=== PATIENT | female | born 1955 | race Caucasian/White ===

== ENCOUNTER → 2017-06-28 | Outpatient (CLI) | payer MEDICARE, MEDICAID ==
[~2017-06-28] MED LIST: AMOXICILLIN500 MG PO; ARTHRITIS PAIN650 MG; CLARITIN10 MG PO; COMBIVENT1 ARO IH; FLEXERIL10 MG PO; FLEXERIL5 MG PO; IBU-200200 MG PO; LEVAQUIN750 M1 PO; LISINOPRIL2.5 MG PO; MOTRIN800 MG PO; PREDNISONE10 MG PO; PREDNISONE20 M1 PO; PREDNISONE20 MG PO; ROBAXIN500 MG PO; ZITHROMAX Z PA250 MG PO; ZYRTEC10 MG PO
[2017-06-28 12:30] LABS: BASO # 0.1 10*3/uL (0.0-0.1); BASO % 0.7 % (0.0-1.0); EOS # 0.2 10*3/uL (0.0-0.4); EOS % 2.1 % (1.0-4.0); HEMATOCRIT 41.5 % (37.0-47.0); HEMOGLOBIN 14.2 g/dl (12.0-16.0); LYMPH # 2.6 10*3/uL (1.3-4.4); MEAN CELL VOLUME 92.2 fl (81.0-99.0); MEAN CORPUSCULAR HGB 31.6 pg (27.0-31.0); MEAN CORPUSCULAR HGB CONC 34.2 g/dl (33.0-37.0); MEAN PLATELET VOLUME 9.2 fl (9.6-12.3); MONO # 0.6 10*3/uL (0.1-1.0); MONO % 6.7 % (3.0-9.0); NEUT # 4.8 10*3/uL (2.3-7.9); NEUT % 57.8 % (47.0-73.0); PLATELET COUNT AUTOMATED 265 10*3/uL (130-400); RED CELL DISTRI WIDTH 13.2 % (0-14.5); WHITE BLOOD COUNT 8.3 10*3/uL (4.8-10.8)
[2017-06-28 13:10] LABS: ALBUMIN 3.5 gm/dl (3.1-4.5); ALKALINE PHOSPHATASE 92 U/L (45-117); BUN 13 mg/dl (7-24); CHLORIDE 106 mmol/L (98-107); CREATININE 0.85 mg/dL (0.55-1.02); POTASSIUM 4.2 mmol/L (3.5-5.1); SGOT/AST 74 IU/L (3-35); SGPT/ALT 83 U/L (12-78); SODIUM 140 mmol/L (136-145); TOTAL PROTEIN 7.2 gm/dL (6.4-8.2)
[2017-06-29 08:11] LABS: RHEUMATOID ARTHRITIS FACTOR 11.8 IU/mL (0.0-13.9)
== END | disposition home or self-care (01) ==
LOC: LAB 11:47
PROVIDERS: Internal Medicine
DX: I10 Essential (primary) hypertension (principal); L40.9 Psoriasis, unspecified; E55.9 Vitamin D deficiency, unspecified; M35.3 Polymyalgia rheumatica

== ENCOUNTER 2017-08-15 11:34 | Inpatient (IN) | payer MEDICARE, MEDICAID ==
[~2017-08-15] VITALS: Ht 170.2 cm; Wt 97.7 kg
[2017-08-15 11:42] VITALS: BP 134/88
[2017-08-15 12:35] LABS: BASO % 0.3 % (0.0-1.0); EOS # 0.1 10*3/uL (0.0-0.4); EOS % 0.6 % (1.0-4.0); HEMATOCRIT 43.6 % (37.0-47.0); LYMPH # 2.2 10*3/uL (1.3-4.4); LYMPH % 18.7 % (27.0-41.0); MEAN CELL VOLUME 90.1 fl (81.0-99.0); MEAN CORPUSCULAR HGB CONC 34.4 g/dl (33.0-37.0); MEAN PLATELET VOLUME 8.9 fl (9.6-12.3); MONO # 0.6 10*3/uL (0.1-1.0); MONO % 5.5 % (3.0-9.0); NEUT # 8.6 10*3/uL (2.3-7.9); NEUT % 74.5 % (47.0-73.0); PLATELET COUNT AUTOMATED 269 10*3/uL (130-400); RED BLOOD COUNT 4.84 10*6/uL (4.10-5.10); RED CELL DISTRI WIDTH 13.1 % (0-14.5); WHITE BLOOD COUNT 11.5 10*3/uL (4.8-10.8)
[2017-08-15 12:44] LABS: ACT PARTIAL THROMBO TIME 23.6 SECONDS (20.8-31.5)
[2017-08-15 12:54] LABS: ALBUMIN 3.5 gm/dl (3.1-4.5); ALKALINE PHOSPHATASE 95 U/L (45-117); BUN 13 mg/dl (7-24); CHLORIDE 103 mmol/L (98-107); CREATININE 0.89 mg/dL (0.55-1.02); LIPASE 112 U/L (73-393); SGOT/AST 32 IU/L (3-35); SGPT/ALT 53 U/L (12-78); SODIUM 139 mmol/L (136-145); TOTAL PROTEIN 7.7 gm/dL (6.4-8.2)
[2017-08-15 12:55] LABS: TROPONIN I < 0.015 ng/ml (<0.045)
[2017-08-15 13:49] LABS: BILIRUBIN NEGATIVE (NEGATIVE); BLOOD 1+ (NEGATIVE); CLARITY CLEAR (CLEAR); COLOR YELLOW (YELLOW); GLUCOSE NEGATIVE (NEGATIVE); KETONE NEGATIVE (NEGATIVE); LEUKO ESTERASE NEGATIVE (NEGATIVE); NITRITE NEGATIVE (NEGATIVE); SPECIFIC GRAVITY <= 1.005 (1.005-1.030)
[2017-08-15 14:04] LABS: BACTERIA TRACE
--- NOTE | 2017-08-15 14:09 | NUR ---
RESTING IN NO DISTRESS. NAUSEA "NOT BAD" LUCILA DAVALOS RN
[2017-08-15 15:21] VITALS: BP 118/60
[2017-08-15 15:30] VITALS: BP 154/58
--- NOTE | 2017-08-15 15:50 | NUR ---
A 61, admitted to , under the services of RIANNA Hayden DO with a diagnosis of ACUTE GASTRITIS. Chief complaint is NAUSEA/VOMITING. Patient arrived via ambulatory from ER. Monitor applied. Initial assessment completed. Vital signs taken and recorded. RIANNA HAYDEN DO notified of admission to the unit. Orders received. See assessment for past medical history, medications and allergies. Patient and/or family oriented to unit. [facility] reviewed. Clothing/patient valuable form completed. YI PASTOR
[2017-08-15 16:00] VITALS: BP 154/58
--- NOTE | 2017-08-15 16:17 | NUR ---
DR ZENG CALLED FOR CONSULT.
--- NOTE | 2017-08-15 16:46 | NUR ---
PT REFUSING FLU AND PNEUMONIA VACCINES THIS ADMISSION, STATES SHE HAD A BAD REACTION TO FLU VACC IN THE PAST.
--- NOTE | 2017-08-15 17:23 | NUR ---
PT C/O H/A, REQUESTED AND ADMINISTERED TYLENOL 650MG PO PRN PER ORDERS, WILL MONITOR EFFECTS, CALL LIGHT WITH IN REACH
--- NOTE | 2017-08-15 18:21 | NUR ---
PRN PAIN MED EFFECTIVE, PT REPORTS HEADACHE 4/10.
[2017-08-15 20:00] VITALS: BP 122/50
[2017-08-16] VITALS: BP 90/58
--- NOTE | 2017-08-16 05:40 | NUR ---
PATIENT MEDICATED WITH TYLENOL PER PRN ORDER FOR C/O HEADACHE. RATED PAIN A 6/10 WITH 10 BEING THE WORST. SEE EMAR. REINFORCED USE OF CALL LIGHT.
[2017-08-16 06:12] LABS: BASO % 0.5 % (0.0-1.0); EOS # 0.2 10*3/uL (0.0-0.4); EOS % 2.2 % (1.0-4.0); HEMATOCRIT 41.1 % (37.0-47.0); HEMOGLOBIN 14.3 g/dl (12.0-16.0); LYMPH # 2.5 10*3/uL (1.3-4.4); LYMPH % 29.3 % (27.0-41.0); MEAN CELL VOLUME 91.5 fl (81.0-99.0); MEAN CORPUSCULAR HGB 31.8 pg (27.0-31.0); MEAN CORPUSCULAR HGB CONC 34.8 g/dl (33.0-37.0); MONO # 0.5 10*3/uL (0.1-1.0); MONO % 6.1 % (3.0-9.0); NEUT # 5.2 10*3/uL (2.3-7.9); NEUT % 61.4 % (47.0-73.0); PLATELET COUNT AUTOMATED 279 10*3/uL (130-400); RED BLOOD COUNT 4.49 10*6/uL (4.10-5.10); RED CELL DISTRI WIDTH 13.4 % (0-14.5); WHITE BLOOD COUNT 8.5 10*3/uL (4.8-10.8)
--- NOTE | 2017-08-16 06:30 | NUR ---
PATIENT STATED PAIN MED HELPED A LITTLE WITH HEADACHE.
[2017-08-16 06:44] LABS: BUN 11 mg/dl (7-24); CHLORIDE 108 mmol/L (98-107); CHOLESTEROL 100 mg/dL (<200); CREATININE 0.81 mg/dL (0.55-1.02); HDL CHOLESTEROL 65 mg/dl (40-60); LDL CHOLESTEROL 22 mg/dL (9-159); PHOSPHOROUS 3.3 mg/dL (2.5-4.9); SODIUM 142 mmol/L (136-145); TRIGLYCERIDES 63 mg/dl (<150); VLDL CHOLESTEROL 13 mg/dL (6-40)
[2017-08-16 07:34] LABS: VITAMIN D, 25-HYDROXY 18.4 ng/mL (30-100)
[2017-08-16 08:00] VITALS: BP 111/53
[2017-08-16 12:00] VITALS: BP 142/61
[2017-08-16 16:00] VITALS: BP 93/39
[2017-08-16 18:48] VITALS: BP 104/46
--- NOTE | 2017-08-16 18:49 | NUR ---
NOTIFIED OF HYPOTENSION, PT IS ASYMPTOMATIC, SITTING IN CHAIR WATCHING TV,
--- NOTE | 2017-08-16 19:50 | NUR ---
PT. AWAKE, ALERT AND ORIENTED X 3 AT THIS TIME. PT. IN BED AT THIS TIME. LUNGS DIMINISHED T/O, DENIES SOB, NO COUGH PER PT. HRR, PPP, NO EDEMA, DENIES CP. BS NORMO X 4 QUADS, PT. DENIES NVD AT THIS TIME. SKIN W/D/I. IV IN RT. AC ASYMPTOMATIC. CALL LIGHT WITHIN REACH, BED IN LOWEST POSITION, WHEELS LOCKED.
[2017-08-16 20:00] VITALS: BP 122/50
[2017-08-17] VITALS: BP 101/50
[2017-08-17 06:44] LABS: BASO % 0.3 % (0.0-1.0); EOS # 0.3 10*3/uL (0.0-0.4); HEMATOCRIT 41.2 % (37.0-47.0); HEMOGLOBIN 13.9 g/dl (12.0-16.0); LYMPH # 2.7 10*3/uL (1.3-4.4); MEAN CELL VOLUME 91.4 fl (81.0-99.0); MEAN CORPUSCULAR HGB 30.8 pg (27.0-31.0); MEAN CORPUSCULAR HGB CONC 33.7 g/dl (33.0-37.0); MEAN PLATELET VOLUME 9.4 fl (9.6-12.3); MONO # 0.6 10*3/uL (0.1-1.0); MONO % 6.5 % (3.0-9.0); NEUT % 58.7 % (47.0-73.0); PLATELET COUNT AUTOMATED 289 10*3/uL (130-400); RED BLOOD COUNT 4.51 10*6/uL (4.10-5.10); RED CELL DISTRI WIDTH 13.3 % (0-14.5); WHITE BLOOD COUNT 8.6 10*3/uL (4.8-10.8)
[2017-08-17 07:23] VITALS: BP 128/61
--- NOTE | 2017-08-17 07:30 | NUR ---
PATIENT IS RESTING IN THE BEDSIDE CHAIR. PATIENT DENIES ANY PAIN OR DISCOMFORT AT THIS TIME. PATIENT IS A&OX3 AND AMBULATORY W/STEADY GAIT. PATIENT WAS PLEASANT AND COOPERATIVE UPON ASSESSMENT. CALL LIGHT WITHIN REACH. SEE ASSESSMENT.
--- NOTE | 2017-08-17 07:35 | NUR ---
PATIENT OFF THE FLOOR VIA BED FOR SCHEDULED EDG.
[2017-08-17 09:34] VITALS: BP 124/58
[2017-08-17 09:49] VITALS: BP 130/82
[2017-08-17 10:04] VITALS: BP 131/63
[2017-08-17 12:26] VITALS: BP 133/66
--- NOTE | 2017-08-17 14:25 | NUR ---
PATIENT IS SITTING UP IN THE BEDSIDE CHAIR. SCD ARE APPLIED AND FUNCTIONING. PATIENT DENIES ANY PAIN OR DISCOMFORT AT THIS TIME. PATIENT IS ON A REGULAR DIET AND TOLERATING FOOD WELL. PATIENT DENIES ANY N/V/D OR SOB UPON ASSESSMENT. PATIENT IS AMBULATORY AND A&OX3. CALL LIGHT IS WITHIN REACH. SEE ASSESSMENT.
[2017-08-17] MEDS ORDERED: PROTONIX40 MG PO (15:06)
[2017-08-17] MEDS ORDERED: Carafate1 GM PO ×2 (15:06→15:43)
--- NOTE | 2017-08-17 15:45 | NUR ---
Discharge instructions reviewed with patient/family. Patient receptive and verbalizes understanding. Follow-up care arranged WITH PCP IN ONE WEEK. Written instructions given to patient. PATIENT ESCORTED OFF OF FLOOR VIA WHEELCHAIR. ODALIS VERMA
== END 2017-08-17 15:45 | disposition home or self-care (01) | DRG 384 ==
LOC: ED 11:34 → 5E 14:53 → EDHOLD 14:53 → 5E 14:57
PROVIDERS: Emergency Medicine; Student in an Organized Health Care Education/Training Program; ADMIT Internal Medicine
PROC: 0DB68ZX Excision of Stomach, Via Natural or Artificial Opening Endoscopic, Diagnostic (ICD-10-PCS; principal; 2017-08-17)
DX: K25.9 Gastric ulcer, unspecified as acute or chronic, without hemorrhage or perforation (principal); E66.9 Obesity, unspecified; K29.70 Gastritis, unspecified, without bleeding; K26.9 Duodenal ulcer, unspecified as acute or chronic, without hemorrhage or perforation; I10 Essential (primary) hypertension; Z71.6 Tobacco abuse counseling; Z72.0 Tobacco use; Z88.1 Allergy status to other antibiotic agents; Z79.2 Long term (current) use of antibiotics; Z79.899 Other long term (current) drug therapy; Z87.01 Personal history of pneumonia (recurrent); Z90.49 Acquired absence of other specified parts of digestive tract; Z98.51 Tubal ligation status; Z80.8 Family history of malignant neoplasm of other organs or systems; Z81.8 Family history of other mental and behavioral disorders; Z68.33 Body mass index [BMI] 33.0-33.9, adult

== ENCOUNTER → 2018-02-20 | Outpatient (CLI) | payer MEDICARE, MEDICAID ==
[~2018-02-20] MED LIST changes: +Carafate1 GM PO; +PROTONIX40 MG PO
== END | disposition home or self-care (01) ==
LOC: RAD 11:49
DX: M51.37 Other intervertebral disc degeneration, lumbosacral region (principal); M79.604 Pain in right leg

== ENCOUNTER 2018-11-07 12:47 | Emergency (ER) | payer MEDICARE, MEDICAID ==
[~2018-11-07] VITALS: Ht 175.2 cm; Wt 95.3 kg
--- NOTE | ~2018-11-07 | EKG ---
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
--- NOTE | ~2018-11-07 | EKG ---
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
[2018-11-07 13:12] LABS: BASO % 0.4 % (0.0-1.0); EOS # 0.1 10*3/uL (0.0-0.4); EOS % 1.4 % (1.0-4.0); HEMATOCRIT 46.1 % (37.0-47.0); HEMOGLOBIN 15.2 g/dl (12.0-16.0); LYMPH # 2.5 10*3/uL (1.3-4.4); LYMPH % 29.8 % (27.0-41.0); MEAN CELL VOLUME 92.4 fl (81.0-99.0); MEAN CORPUSCULAR HGB 30.5 pg (27.0-31.0); MEAN PLATELET VOLUME 9.2 fl (9.6-12.3); MONO # 0.6 10*3/uL (0.1-1.0); MONO % 6.6 % (3.0-9.0); NEUT # 5.2 10*3/uL (2.3-7.9); NEUT % 61.4 % (47.0-73.0); PLATELET COUNT AUTOMATED 271 10*3/uL (130-400); RED BLOOD COUNT 4.99 10*6/uL (4.10-5.10); WHITE BLOOD COUNT 8.4 10*3/uL (4.8-10.8)
[2018-11-07 13:22] LABS: ACT PARTIAL THROMBO TIME 24.9 SECONDS (20.8-31.5)
[2018-11-07 13:32] LABS: ALBUMIN 3.6 gm/dl (3.1-4.5); ALKALINE PHOSPHATASE 105 U/L (45-117); BUN 13 mg/dl (7-24); CHLORIDE 105 mmol/L (98-107); CREATININE 0.85 mg/dL (0.55-1.02); POTASSIUM 4.1 mmol/L (3.5-5.1); SGOT/AST 62 IU/L (3-35); SGPT/ALT 68 U/L (12-78); SODIUM 138 mmol/L (136-145); TOTAL PROTEIN 7.8 gm/dL (6.4-8.2)
[2018-11-07 13:36] LABS: TROPONIN I < 0.015 ng/ml (<0.045)
[2018-11-07 15:27] VITALS: BP 99/58
== END 2018-11-07 16:30 | disposition home or self-care (01) ==
LOC: ED 12:47
PROVIDERS: Emergency Medicine
DX: R07.89 Other chest pain (principal); I10 Essential (primary) hypertension; E66.9 Obesity, unspecified; Z87.891 Personal history of nicotine dependence; Z90.49 Acquired absence of other specified parts of digestive tract; Z98.51 Tubal ligation status; Z68.39 Body mass index [BMI] 39.0-39.9, adult; Z88.1 Allergy status to other antibiotic agents; Z79.899 Other long term (current) drug therapy; Z87.01 Personal history of pneumonia (recurrent)

== ENCOUNTER 2022-10-23 10:44 | Inpatient (IN) | payer MEDICARE ==
[~2022-10-23] VITALS: Ht 170.2 cm; Wt 103.4 kg
[2022-10-23 10:51] VITALS: BP 153/50
[2022-10-23 11:33] LABS: BILIRUBIN Negative (Negative); BLOOD Negative (Negative); CLARITY Clear (Clear); COLOR Yellow (Yellow); GLUCOSE Negative (Negative); KETONE Negative (Negative); LEUKO ESTERASE Negative (Negative); NITRITE Negative (Negative); PH 5.5 (4.5-8.0); SPECIFIC GRAVITY 1.015 (1.001-1.030); UROBILINOGEN 0.2 E.U./dl (0.0-1.0)
[2022-10-23 11:41] LABS: BACTERIA 1+
[2022-10-23 12:02] LABS: BASO % 0.4 % (0.0-1.0); EOS # 0.1 10*3/uL (0.0-0.4); EOS % 1.7 % (1.0-4.0); HEMATOCRIT 41.9 % (37.0-47.0); LYMPH # 1.4 10*3/uL (1.3-4.4); MEAN CELL VOLUME 90.1 fl (81.0-99.0); MEAN CORPUSCULAR HGB 29.5 pg (27.0-31.0); MEAN CORPUSCULAR HGB CONC 32.7 g/dl (33.0-37.0); MEAN PLATELET VOLUME 9.2 fl (9.6-12.3); MONO # 0.4 10*3/uL (0.1-1.0); MONO % 5.8 % (3.0-9.0); NEUT # 4.9 10*3/uL (2.3-7.9); NEUT % 71.4 % (47.0-73.0); PLATELET COUNT AUTOMATED 248 10*3/uL (130-400); RED BLOOD COUNT 4.65 10*6/uL (4.10-5.10); RED CELL DISTRI WIDTH 13.4 % (0-14.5); WHITE BLOOD COUNT 6.9 10*3/uL (4.8-10.8)
[2022-10-23 12:14] LABS: ACT PARTIAL THROMBO TIME 28.3 SECONDS (20.0-32.1)
[2022-10-23 12:29] LABS: ALKALINE PHOSPHATASE 80 U/L (46-116); BUN 15 mg/dl (9-23); CHLORIDE 100 mmol/L (98-107); LIPASE 33 U/L (12-53); POTASSIUM 4.1 mmol/L (3.4-5.1); SGPT/ALT 30 U/L (10-49); TOTAL PROTEIN 7.3 gm/dL (6.0-8.0)
[2022-10-23 17:00] VITALS: BP 131/47
[2022-10-23] MEDS ORDERED: LISINOPRIL10 M1 PO (17:10)
[2022-10-23] MEDS ORDERED: HYDROCHLOROTH12.5 M2 PO (17:10)
[2022-10-23 18:00] VITALS: BP 110/42
[2022-10-23 20:00] VITALS: BP 135/60
[2022-10-24] VITALS: BP 111/50
[2022-10-24 06:52] LABS: BASO % 0.1 % (0.0-1.0); HEMATOCRIT 42.3 % (37.0-47.0); LYMPH # 0.8 10*3/uL (1.3-4.4); LYMPH % 9.6 % (27.0-41.0); MEAN CELL VOLUME 87.8 fl (81.0-99.0); MEAN CORPUSCULAR HGB 29.7 pg (27.0-31.0); MEAN CORPUSCULAR HGB CONC 33.8 g/dl (33.0-37.0); MEAN PLATELET VOLUME 9.5 fl (9.6-12.3); MONO # 0.1 10*3/uL (0.1-1.0); MONO % 1.2 % (3.0-9.0); NEUT # 6.9 10*3/uL (2.3-7.9); NEUT % 87.6 % (47.0-73.0); PLATELET COUNT AUTOMATED 272 10*3/uL (130-400); RED BLOOD COUNT 4.82 10*6/uL (4.10-5.10); RED CELL DISTRI WIDTH 13.1 % (0-14.5); WHITE BLOOD COUNT 7.8 10*3/uL (4.8-10.8)
[2022-10-24 07:59] LABS: ALKALINE PHOSPHATASE 81 U/L (46-116); BUN 18 mg/dl (9-23); CHLORIDE 102 mmol/L (98-107); CHOLESTEROL 143 mg/dL (<200); FREE T4 1.22 ng/dl (0.89-1.76); LDL CHOLESTEROL 58 mg/dL (9-159); POTASSIUM 4.4 mmol/L (3.4-5.1); SGPT/ALT 30 U/L (10-49); THYROID STIM HORMONE (HS) 1.033 uIU/ml (0.550-4.780); TOTAL PROTEIN 7.5 gm/dL (6.0-8.0); TRIGLYCERIDES 50 mg/dl (<150)
[2022-10-24 08:00] VITALS: BP 150/55
[2022-10-24] MEDS ORDERED: Ipratropium Brom3 ML INH (11:19)
[2022-10-24] MEDS ORDERED: PROVENTIL HFA6.7 GM INH (11:19)
[2022-10-24] MEDS ORDERED: LEVOFLOXACIN500 MG PO (11:19)
[2022-10-24] MEDS ORDERED: AEROECLIPSE II1 EACH INH (11:19)
[2022-10-24] MEDS ORDERED: PREDNISONE50 MG PO (11:19)
== END 2022-10-24 12:45 | disposition home or self-care (01) | DRG 192 ==
LOC: ED 10:44 → EDHOLD 17:40 → 4E 17:40
PROVIDERS: Emergency Medicine; Internal Medicine; ADMIT Internal Medicine; ATTEND Internal Medicine
DX: J43.2 Centrilobular emphysema (principal); R82.71 Bacteriuria; I45.19 Other right bundle-branch block; R73.9 Hyperglycemia, unspecified; I11.9 Hypertensive heart disease without heart failure; E55.9 Vitamin D deficiency, unspecified; Z87.891 Personal history of nicotine dependence; Z88.1 Allergy status to other antibiotic agents; Z88.8 Allergy status to other drugs, medicaments and biological substances; Z90.49 Acquired absence of other specified parts of digestive tract; Z98.51 Tubal ligation status; Z82.0 Family history of epilepsy and other diseases of the nervous system; Z80.8 Family history of malignant neoplasm of other organs or systems; Z87.11 Personal history of peptic ulcer disease; Z79.899 Other long term (current) drug therapy